=== PATIENT | female | born 1955 | race Caucasian/White ===

== ENCOUNTER → 2018-05-09 | Outpatient (CLI) | payer OTHER ==
[~2018-05-09] VITALS: Ht 152.4 cm; Wt 87.1 kg
[~2018-05-09] MED LIST: GLUCOPHAGE XR500 MG PO; HYDROCHLOROTHIA25 M2 PO; LEXAPRO20 MG PO; LIORESAL 10 MG10 MG PO; NEURONTIN 300300 M1 PO; PROTONIX 20 MG20 MG PO; SIMVASTATIN40 MG PO; WELLBUTRIN SR150 MG PO
--- NOTE | ~2018-05-09 | CATHLAB ---
[facility] [address] [place] [address] INVASIVE PROCEDURE REPORT Name: BUCK OROZCO Room #: REG [facility].#: [id number] Admission: 05/09/18 Attend Phys: Silvio Rivera MD Discharge: Date of : 55 Date of Service: 05/09/18 1450 Report #: [id number] THIS REPORT FOR: //name// APPROVED REPORT Study performed: 05/09/2018 09:48:00 Patient Details Patient Status: Out-Patient Room #: The patient is a 62 year-old female Event Personnel Silvio Rivera Area Relief Pilot, Lindsay PaulinoR, MARRIAGE AND FAMILY COUNSELOR Monitor, Keith Perkins RN RN, Parul Orr Penny, Wes RN Procedures Performed Art Access - R femoral artery* Left Heart Cath w/or w/o Coronaries [id number] [facility] [id number] Initial Mod Sed Same Phys/QHP Gr5y [id number] Hemostasis with Manual pressure Indication Dyspnea, Positive stress test, Chest pain Risk Factors Family History, Hypercholesterolemia, Hypertension Procedure Narrative The Right Groin^ was infiltrated with 1% Lidocaine subcutaneous anesthesia. A PINNACLE 4FR Sheath #[id number] sheath was inserted into the RFA^. Coronary angiography was performed using coronary diagnostic catheters. The right coronary system was accessed and visualized with a JR4 catheter. The left coronary system was accessed and visualized with a JL4 catheter. The left ventricle was accessed and visualized with a ANGLED PIGTAIL catheter. Left ventricular/Aortic Valve gradient assessed via catheter pullback. Left ventriculogram was performed in 30 degree projection. Hemostasis was obtained with manual pressure following sheath removal without any complications. The patient tolerated the procedure well and there were no complications associated with the procedure. There was no hematoma. Intraoperative Conscious Sedation Fentanyl 50 mcg Versed 1 mg [facility] [place] [address] INVASIVE PROCEDURE REPORT Name: OROZCOBUCK Room #: REG [facility]#: [id number] Admission: 05/09/18 Attend Phys: Silvio Rivera MD Discharge: Date of : 55 Date of Service: 05/09/18 1450 Report #: [id number] Fluoro Time: 387.00 minutes Dose: DAP 3183.90 cGycm2 387 mGy Contrast Type and Amount: Omnipaque 80 ml Coronary Angiography The patient's coronary anatomy is right dominant. Diagnostic Cath Left Main Patent vessel, with no flow-limiting lesions. LAD This is a moderate size caliber vessel, traveling down the anterior wall and terminating at the apex. There is only mild disease in the proximal segment, 20%. Diagonal 1 Patent vessel, with no flow-limiting lesions. Circumflex There is mild disease in the mid segment, 20%. OM1 Patent vessel, with no flow-limiting lesions. OM2 Moderate size caliber vessel, travels down the lateral wall, supplying several branches. Patent vessel with no flow-limiting lesions. Right Coronary Dominant vessel, mild disease in the proximal segment, 30%. R PDA Patent vessel, with no flow-limiting lesions. RPLV Patent vessel, with no flow-limiting lesions. Left Ventriculography The left ventricle is normal in size with normal contractility. The left ventricular ejection fraction is estimated to be 55-60%. Hemodynamics The aortic pressure is 111/73 mmHg with a mean of 90 mmHg. The left ventricular pressure is 121/13 mmHg with a mean of mmHg. The left ventricular end diastolic pressure is 21 mmHg. Conclusion 1. Mild nonobstructive CAD. 2. Right dominant system. 3. Normal LV systolic function. 4. Recommend aggressive risk factor management. <ELECTRONICALLY SIGNED> By: Silvio Rivera MD 05/09/18 1450 145 1450 Silvio Rivera MD /INF
[2018-05-09 08:29] VITALS: BP 103/62
[2018-05-09 08:44] LABS: HEMATOCRIT 41.5 % (37.0-47.0); HEMOGLOBIN 14.5 gm/dL (12.0-15.0); MCH 31.4 pg (26.0-34.0); MCHC 34.9 g/dL (28.0-37.0); MCV 89.9 fL (80.0-100.0); RBC 4.61 mil/uL (4.20-5.00); RDW 13.3 % (10.5-14.5); WBC 6.2 thou/uL (4.0-11.0)
[2018-05-09 08:51] LABS: CALCIUM 8.9 mg/dL (8.5-10.1); CREATININE 0.8 mg/dL (0.6-1.0); POTASSIUM 3.5 mmol/L (3.5-5.1)
== END | disposition home or self-care (01) ==
LOC: CATH 06:24
PROVIDERS: Internal Medicine Cardiovascular Disease
DX: I25.10 Atherosclerotic heart disease of native coronary artery without angina pectoris (principal); I10 Essential (primary) hypertension; E78.00 Pure hypercholesterolemia, unspecified; E78.5 Hyperlipidemia, unspecified; E11.9 Type 2 diabetes mellitus without complications; K21.9 Gastro-esophageal reflux disease without esophagitis; E66.09 Other obesity due to excess calories; F32.9 Major depressive disorder, single episode, unspecified; Z82.49 Family history of ischemic heart disease and other diseases of the circulatory system; Z98.890 Other specified postprocedural states; Z79.899 Other long term (current) drug therapy

== ENCOUNTER → 2020-04-21 | Outpatient (CLI) | payer OTHER | LOC: SJCVCIMAG 07:42 | PROVIDERS: ATTEND Internal Medicine Cardiovascular Disease | DX: I25.10 Atherosclerotic heart disease of native coronary artery without angina pectoris (principal); R00.0 Tachycardia, unspecified ==